=== PATIENT | male | born 1970 | race Caucasian/White ===

== ENCOUNTER 2021-01-13 16:48 | Emergency (ER) | payer BC ==
[2021-01-13] MEDS ORDERED: Lidocaine 1% w/Epinephrine 1:100K 20 ML VIAL ONE (17:22)
[2021-01-13] MEDS ORDERED: Bacitracin 1 PK ONE (17:35)
== END 2021-01-13 17:40 | disposition home or self-care (01) ==
LOC: CSHERS 16:48
DX: S81.811A Laceration without foreign body, right lower leg, initial encounter (principal); W26.9XXA Contact with unspecified sharp object(s), initial encounter
CPT/HCPCS: 12001; 99283